=== PATIENT | female | born 1985 | race Caucasian/White ===

== ENCOUNTER → 2017-11-07 | Outpatient (CLI) | payer OTHER ==
[~2017-11-07] MED LIST: OXYC-302 PO
== END | disposition home or self-care (01) ==
LOC: CFH 07:39
PROVIDERS: ATTEND Nurse Practitioner Family
DX: J02.8 Acute pharyngitis due to other specified organisms (principal); R13.10 Dysphagia, unspecified
CPT/HCPCS: 70360

== ENCOUNTER 2021-03-05 10:30 | Day surgery (SDC) | payer OTHER ==
[2021-03-03 09:11] LABS: BASOPHILS % (AUTO) 1 % (0-1); EOSINOPHILS % (AUTO) 2 % (1-7); LYMPHOCYTES % (AUTO) 45 % (22-44); MEAN CORPUSCULAR HEMOGLOBIN 32.1 pg (27.0-34.8); MEAN CORPUSCULAR HGB CONC 34.5 g/dL (32.4-35.8); MEAN PLATELET VOLUME 8.6 fL (7.4-10.4); MONOCYTES % (AUTO) 8 % (2-9); NEUTROPHILS % (AUTO) 45 % (42-75); PLATELET COUNT 208 x10^3/uL (130-400); RED BLOOD COUNT 4.26 x10^6/uL (3.82-5.3); RED CELL DISTRIBUTION WIDTH 12.7 % (9.6-15.2)
[~2021-03-05] VITALS: Ht 167.6 cm; Wt 89.2 kg
[~2021-03-05 10:30] MED LIST changes: +LEVO500T8 PO; +MELA10TA PO; -OXYC-302 PO; +OXYC1TAB14 PO; +SERT50TA PO; +SULF-23 PO
[2021-03-05 15:26] VITALS: BP 98/66
[2021-03-05] MEDS ORDERED: LACTATED RINGERS 1,000 ML IV SCH (15:30)
[2021-03-05] MEDS ORDERED: CHLORHEXIDINE 15 ML UDC PO ONE (15:30)
[2021-03-05] MEDS ORDERED: CHLORHEXIDINE 15 ML UDC ONE (15:33)
[2021-03-05] MEDS ORDERED: LIDOCAINE-MPF 1%, 2ML ONE (15:39)
[2021-03-05] MEDS ORDERED: CEFAZOLIN 1,000 MG ONE (16:00)
[2021-03-05] MEDS ORDERED: VANCOMYCIN 1,000 MG ONE (16:00)
[2021-03-05] MEDS ORDERED: BUPIVACAINE/PF 0.5% ONE (16:00)
[2021-03-05] MEDS ORDERED: GENTAMICIN 80 MG/2 ML ONE (16:00)
[2021-03-05] MEDS ORDERED: LIDOCAINE-MPF 1%, 2ML INFIL ONE (16:00)
[2021-03-05] MEDS ORDERED: EPINEPHRINE 1 MG/ML, 1ML ONE (16:00)
[2021-03-05] MEDS ORDERED: MIDAZOLAM 1 MG/ML, 2ML ONE (16:04)
[2021-03-05] MEDS ORDERED: FENTANYL PF 100 MCG/2ML ONE ×4 (16:04→18:53)
[2021-03-05 16:09] LABS: HCG UR SG 1.011 (1.003-1.030)
[2021-03-05] MEDS ORDERED: OXYcodone 5 MG/5 ML ORAL.SOL UDC PO PRN (17:30)
[2021-03-05] MEDS ORDERED: ONDANSETRON 2MG/ML, 2ML IVPush PRN (17:30)
[2021-03-05] MEDS ORDERED: MEPERIDINE/PF 25MG/0.5ML IVPush PRN (17:30)
[2021-03-05] MEDS ORDERED: HYDROmorphone 1 MG/ML, 1ML INJ IVPush PRN (17:30)
[2021-03-05] MEDS ORDERED: PROMETHAZINE 25 MG/ML, 1ML IVPush PRN (17:30)
[2021-03-05] MEDS ORDERED: OXYcodone 5 MG/5 ML ORAL.SOL UDC ONE (18:09)
[2021-03-05] MEDS ORDERED: ONDANSETRON 2MG/ML, 2ML ONE (18:09)
[2021-03-05] MEDS: FENTANYL PF 100 MCG/2ML IV PRN ×3 (18:13→18:45)
[2021-03-05] MEDS ORDERED: HYDROmorphone 1 MG/ML, 1ML INJ ONE (19:57)
== END 2021-03-05 20:40 | disposition home or self-care (01) ==
LOC: OR 10:30
PROVIDERS: ATTEND Plastic Surgery
DX: N65.0 Deformity of reconstructed breast (principal); F41.9 Anxiety disorder, unspecified; F32.9 Major depressive disorder, single episode, unspecified; Z20.822 Contact with and (suspected) exposure to COVID-19; Z79.899 Other long term (current) drug therapy; Z85.3 Personal history of malignant neoplasm of breast; Z88.5 Allergy status to narcotic agent; Z88.8 Allergy status to other drugs, medicaments and biological substances; Z90.13 Acquired absence of bilateral breasts and nipples
CPT/HCPCS: 15570; 19342; 36415; 81025; 84703; 85025; C1729; C1789; J0171; J0690; J1170; J1580; J2250; J2405; J3010; J3370; J7120; U0003; U0005